=== PATIENT | male | born 1965 | race Caucasian/White ===

== ENCOUNTER 2016-11-05 11:40 | Emergency (ER) | payer MEDICARE ==
[~2016-11-05] VITALS: Ht 185.4 cm; Wt 124.6 kg
[2016-11-05 11:42] VITALS: BP 158/102
[2016-11-05] MEDS ORDERED: DOCUSATE 50 MG/5 ML ORAL SOL OT ONE (12:00)
[2016-11-05] MEDS ORDERED: DOCUSATE 50 MG/5 ML ORAL SOL ONE (12:41)
== END 2016-11-05 13:17 | disposition home or self-care (01) ==
LOC: ED 13:05
DX: T16.1XXA Foreign body in right ear, initial encounter (principal); H61.22 Impacted cerumen, left ear; X58.XXXA Exposure to other specified factors, initial encounter; Y93.89 Activity, other specified; Y92.89 Other specified places as the place of occurrence of the external cause; Y99.9 Unspecified external cause status
CPT/HCPCS: 69200; 69209; 99284